=== PATIENT | female | born 1940 | race Caucasian/White ===

== ENCOUNTER 2021-06-10 12:38 | Emergency (ER) | payer MEDICARE, BC ==
[2021-06-10 12:52] VITALS: RESP 18; TEMP 97.9
[2021-06-10] MEDS ORDERED: LIDOCAINE 1%-EPI 1:100,000 20 ML VIAL SQ STA (13:24)
--- NOTE | 2021-06-10 13:31 | ED ---
General Adult HPI - General Chief complaint: Fall Stated complaint: Tumble 2 cement steps Time Seen by Provider: 06/10/21 13:12 Source: patient Mode of arrival: wheelchair Limitations: no limitations - History of Present Illness Initial comments: Dictation was produced using [employer] dictation software. please excuse any grammatical, word or spelling errors. Chief Complaint: 81-year-old female presents after head injury History of Present Illness: Is an 81-year-old female she has past medical history of hypertension. She had just driven from [place] to visit her daughter who lives here. She was walking up the steps when she lost her footing and struck her head on a step. Patient hasn't lost consciousness. No neck pain. She does have mild shoulder pain to the lateral portion of her shoulder. Still able to lift her arm completely. Patient is not taking any anticoagulation medications. Denies any headache. The ROS documented in this emergency department record has been reviewed and confirmed by me. Those systems with pertinent positive or negative responses have been documented in the HPI. All other systems are other negative and/or noncontributory. PHYSICAL EXAM: General Impression: Alert and oriented x3, not in acute distress HEENT: Abrasions to the right face, small 1 cm laceration to the right superior forehead extra-ocular movements intact, pupils equal and reactive to light bilaterally, mucous membranes moist. Cardiovascular: Heart regular rate and rhythm Chest: Able to complete full sentences, no retractions, no tachypnea Abdomen: abdomen soft, non-tender, non-distended, no organomegaly Musculoskeletal: Pulses present and equal in all extremities, no peripheral edema Right upper extremity: No gross deformities Motor: no focal deficits noted Neurological: CN II-XII grossly intact, no focal motor or sensory deficits noted Skin: Intact with no visualized rashes Psych: Normal affect and mood ED course: 81-year-old female presents to the emergency department for head injury. Vital Signs upon arrival shows findings within acceptable limits. Computed tomography scan of the head and C-spine shows no acute processes. Shoulder x-ray shows fracture of the distal right clavicle. Patient placed in a right shoulder sling. Patient has a lot of family that can help take care of h er. Patient told to have sutures removed in 5 days. Tetanus shot updated. Patient given pain prescription when necessary severe pain. Patient ambulated with no consultations. She is tolerating her pain in shoulder sling. - Related Data Previous Rx's Medication Instructions Recorded HYDROcodone/APAP 5-325MG [[place] 1 tab PO Q6HR PRN 3 Days #12 tab 06/10/21 5-325] Allergies Allergy/AdvReac Type Severity Reaction Status Date / Time codeine Allergy Nausea Verified 06/10/21 12:44 Review of Systems ROS Statement: Those systems with pertinent positive or pertinent negative responses have been documented in the HPI. ROS Other: All systems not noted in ROS Statement are negative. Past Medical History Past Medical History: Hyperlipidemia, Hypertension History of Any Multi-Drug Resistant Organisms: None Reported Past Surgical History: Joint Replacement Past Psychological History: No Psychological Hx Reported Smoking Status: Never smoker Past Alcohol Use History: None Reported Past Drug Use History: None Reported General Exam Limitations: no limitations Course Vital Signs 06/10/21 06/10/21 12:45 13:01 Temperature 97.9 F Pulse Rate 55 L 68 Respiratory 18 18 Rate Blood Pressure 61/43 116/65 O2 Sat by Pulse 92 L 92 L Oximetry Procedures - Laceration Laceration #1 Consent Obtained: verbal consent Indication: laceration Site: scalp (right forehead) Description: stellate, flap Depth: simple, single layer Anesthetic Used: lidocaine 1%, with epi Anesthesia Technique: local infiltration Pre-repair: wound explored, irrigated extensively Type of Sutures: nylon Size of Sutures: 6-0 Number of Sutures: 5 Technique: simple, interrupted Complications: pain Patient Tolerated Procedure: well Disposition Clinical Impression: Fall, Forehead laceration, Right clavicle fracture Disposition: HOME SELF-CARE Condition: Fair Instructions (If sedation given, give patient instructions): Fall Prevention for Older Adults (ED) Additional Instructions: Suture removal in 5 days. Follow up with bone specialist when you get back to [place]. Nonweightbearing to the right shoulder. You are allowed to use her hand. Please continue to wear sling. Youre prescribed pain medications and take only as needed for severe pain otherwise Tylenol or Advil is okay. Prescriptions: HYDROcodone/APAP 5-325MG [[place] 5-325] 1 tab PO Q6HR PRN 3 Days #12 tab PRN Reason: Severe Pain Is patient prescribed a controlled substance at d/c from ED?: Yes If prescribed controlled substance>3 days was MAPS reviewed?: Prescribed <3 Days Referrals: None,Stated [Primary Care Provider] - 1-2 days
--- NOTE | 2021-06-10 14:11 | XR ---
Right shoulder. HISTORY: Pain following trauma. COMPARISON: None. TECHNIQUE: 3 views the right shoulder were obtained. FINDINGS: There is a mildly displaced fracture of the distal right clavicle. There is a focal intraosseous abnormality in the right humeral head which most likely represents an c hondroma. The glenohumeral joint is intact. IMPRESSION: 1. Fracture of the distal right clavicle. 2. 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
--- NOTE | 2021-06-10 14:14 | CT ---
EXAMINATION TYPE: CT brain evaristo rogers DATE OF EXAM: 06/10/2021 COMPARISON: None HISTORY: fall, multiple head lacerations CT DLP: 1420.2 mGycm Automated exposure control for dose reduction was used. TECHNIQUE: CT scan of the head and cervical spine are performed without contrast. FINDINGS: There is no acute intracranial hemorrhage, mass effect, or midline shift identified. The ventricles and sulci are within normal limits in size. The globes are intact and the visualized sin uses are clear. Cervical spine is visualized in its entirety from C1 through upper thoracic levels and demonstrates s atisfactory alignment without evidence of acute fracture or dislocation. Prevertebral soft tissue ap pears within normal limits. The C1-C2 articulation is unremarkable. There is mild degenerative disc disease. IMPRESSION: 1. There is no acute fracture or dislocation evident in the cervical spine. 2. No acute intracranial hemorrhage, mass effect, or midline shift is seen.
[2021-06-10] MEDS ORDERED: DIPH,PERTUS(ACELL)TETVAC-LF 0.5 ML VIAL IM ONE (14:44)
[2021-06-10] MEDS ORDERED: BACITRACIN OINT 1 EACH PACKET TOPICAL ONE (14:47)
[2021-06-10] MEDS ORDERED: ACETAMINOPHEN TAB 500 MG TAB PO STA (14:48)
[2021-06-10 15:12] VITALS: BP 155/89; PULSE 66
--- NOTE | 2021-06-10 15:38 | XR ---
EXAMINATION TYPE: XR wrist complete LT DATE OF EXAM: 06/10/2021 COMPARISON: NONE HISTORY: Left wrist pain TECHNIQUE: 4 views FINDINGS: There is narrowing of the radiocarpal joint space. There is some deformity of the distal ra dius consistent with an old healed fracture. I see no acute fracture nor dislocation. There is spurri ng at the first carpometacarpal joint. IMPRESSION: Osteoarthritis. Probable old fracture of the distal radius and ulna. No acute fracture se en.
== END 2021-06-10 16:00 | disposition home or self-care (01) ==
LOC: EC 12:38
DX: S42.031A Displaced fracture of lateral end of right clavicle, initial encounter for closed fracture (principal); S01.81XA Laceration without foreign body of other part of head, initial encounter; I10 Essential (primary) hypertension; E78.5 Hyperlipidemia, unspecified; Z88.5 Allergy status to narcotic agent; W10.8XXA Fall (on) (from) other stairs and steps, initial encounter; Y93.01 Activity, walking, marching and hiking
CPT/HCPCS: 12001; 70450; 72125; 90471; 90715; 99284